=== PATIENT | male | born 1960 | race Caucasian/White ===

== ENCOUNTER 2024-08-26 10:09 | Emergency (ER) | payer OTHER ==
[~2024-08-26] VITALS: Ht 188 cm; Wt 97.3 kg
--- NOTE | 2024-08-26 10:51 | ED.PDOC ---
Musculoskeletal HPI Comments A 64 YEAR OLD MALE PRESENTS TO THE ED WITH COMPLAINT OF RIGHT KNEE PAIN AND SWELLING OF X1 MONTH AGO S/P LIFTING. PATIENT REPORTS NO ALLEVIATING FACTORS AT THIS TIME. PATIENT DENIES FEVER, CHILLS, SHORTNESS OF BREATH, CHEST PAIN, ABDOMINAL PAIN, NAUSEA, VOMITING, HEADACHE, OR OTHER COMPLAINTS. NO OTHER SYMPTOMS OR MODIFYING FACTORS AT THIS TIME. PATIENT IS ALERT, ORIENTED X 4, AND HAS STEADY GAIT. Chief Complaint: LOWER EXTREMITY Time Seen by MD: 10:19 Reviewed Notes: Medications, Allergies Allergies: Coded Allergies: NO KNOWN ALLERGIES (Unverified , 08/26/24) Home Meds Active Scripts Prednisone (Prednisone) 20 Mg Tab, 40 MG PO DAILY, #20 TAB Prov:DIONE WYLIE 08/26/24 Information Source: Patient Mode of Arrival: Ambulatory Location: Right Extremity Location: Knee (RIGHT ) Timing: Months (1) Prehospital treatment: None Severity: Moderate Able to Move Extremity: No Bear Weight: Limited Pain: Moderate Circumstances: Unknown (LIFTING) Onset of Symptoms: During Exercise Symptoms: Swelling, Pain DVT Risk Factors: NONE Last Tetanus: UTD Associated signs and symptoms: Knee pain (RIGHT ) Past Medical History PAST MEDICAL HISTORY: Denies Surgical History: Denies all surgeries Family History Family History: Reviewed,noncontributory to illness, No family hx of Cancer, No family hx of DM, No family hx of Heart spencer, No family hx of HTN, No family hx ofKidney spencer, No family hx of Liver spencer, No family hx of Lung spencer, No family hx of Stroke Social History Smoker: Non-Smoker Alcohol: Denies ETOH Use Drugs: Denies Drug Use Constitutional: denies: chills, diaphoresis, fatigue, fever, malaise, sweats, weakness, others EENTM: denies: blurred vision, double vision, ear bleeding, ear discharge, ear drainage, ear pain, ear ringing, eye pain, eye redness, hearing loss, mouth pain, mouth swelling, nasal discharge, nose bleeding, nose congestion, nose pain, photophobia, tearing, throat pain, throat swelling, voice changes, others Respiratory: denies: cough, hemoptysis, orthopnea, SOB at rest, shortness of breath, SOB with excertion, stridor, wheezing, others Cardiovascular: denies: chest pain, dizzy spells, diaphoresis, Dyspnea on exertion, edema, irregular heart beat, left arm pain, lightheadedness, palpitations, PND, syncope, others Gastrointestinal: denies: abdomen distended, abdominal pain, blood streaked bowels, constipated, diarrhea, dysphagia, difficulty swallowing, hematemesis, melena, nausea, poor appetite, poor fluid intake, rectal bleeding, rectal pain, vomiting, others Genitourinary: denies: burning, dysuria, flank pain, frequency, hematuria, incontinence, penile discharge, penile sore, pain, testicle pain, testicle swelling, urgency, others Neurological: denies: dizziness, fainting, headache, left sided numbness, left sided weakness, numbness, paresthesia, pre-existing deficit, right sided numbness, right sided weakness, seizure, speech problems, tingling, tremors, weakness, others Musculoskeletal: reports: joint pain, joint swelling, others (RIGHT KNEE PAIN ); denies: back pain, gout, muscle pain, muscle stiffness, neck pain Integumetry: denies: bruises, change in color, change in hair/nails, dryness, laceration, lesions, lumps, rash, wounds, others Allergic/Immunocompromised: denies: Difficulty Healing, Frequent Infections, Hives, Itching, others Hematologic/Lymphatic: denies: anemia, blood clots, easy bleeding, easy bruising, swollen glands, others Endocrine: denies: excessive hunger, excessive sweating, excessive thirst, excessive urination, flushing, intolerance to cold, intolerance to heat, unexplained weight gain, unexplained weight loss, others Psychiatric: denies: anxiety, bipolar disorder, depression, hopeless, panic disorder, schizophrenia, sleepless, suicidal, others All Other Systems: Reviewed and Negative Was a procedure done? Was a procedure done?: Yes Sedation Sedation?: No Incision and Drainage Incision and Drainage: Other Location RIGHT KNEE Anesthetic: Lidocaine Preparation: Saline, Wound floor cleaner Incision and Wound: Blood Informed consent obtained: Yes Risks/benefits/alt described: Yes Differential Diagnosis EXT Differential Diagnosis: Deep Vein Thrombosis, Laceration, Contusion, Strain X-Ray, Labs, Meds, VS Vital Signs Date Time Temp Pulse Resp B/P (MAP) Pulse Ox O2 Delivery O2 Flow Rate FiO2 08/26/24 12:19 68 18 97 Room Air 08/26/24 12:19 98.2 68 18 126/81 (96) 97 98.2 08/26/24 10:30 98.4 87 14 122/88 (99) 98 98.4 EXAM: XY R KNEE 2V XRAY HISTORY: PAIN AND SWELLING XONE MONTH COMPARISON: None TECHNIQUE: AP and lateral views of the right knee were performed. FINDINGS: No acute fracture is identified about the right knee. There are medial and patellofemoral small marginal osteophytes. No significant joint space narrowing. There is an osteochondral lesion of the lateral aspect of the medial femoral condyle. There is chondrocalcinosis of the medial and lateral menisci. There is evidence of extrusion of the calcified medial meniscus body on the AP film. Moderate to large joint effusion accumulates in the suprapatellar pouch. There is mild soft tissue prominence anterior to the patella and patellar tendon. IMPRESSION: 1. No acute fracture of the right knee. 2. Osteochondral lesion of the medial femoral condyle. 3. Mild degenerative changes of the medial and patellofemoral compartments. 4. Chondrocalcinosis of the medial and lateral menisci, and medial extrusion of the body of the medial meniscus. Recommend follow-up noncontrast MRI of the right knee on a nonemergent basis for better characterization. 5. Moderate to large joint effusion. X-Ray, Labs, Meds, VS Comment EXTERNAL MEDICAL RECORDS REVIEWED: [NONE] INDEPENDENT HISTORIANS: [NONE] SOCIAL DETERMINANTS OF HEALTH: [NONE] LABS ORDERED: NONE REVIEWED AND INTERPRETED RESULTS: NONE IMAGING ORDERED: RIGHT KNEE 2V XRAY TREATMENTS ORDERED: NONE PROCEDURES PERFORMED: NONE CRITICAL CARE TIME: NONE I HAVE DISCUSSED THE PATIENT WITH THE ATTENDING PHYSICIAN AND HE AGREES WITH THE PATIENT'S PLAN OF CARE AND DISPOSITION. BASED ON HISTORY OF PRESENT ILLNESS, AND PHYSICAL EXAM, PATIENT WILL BE DISCHARGED HOME. DISCUSSED PLAN FOR DISCHARGE HOME WITH RX [[facility]]. MEDICATION WARNINGS GIVEN. SHARED DECISION MAKING: DISCUSSED WITH PATIENT THAT THEIR WORKUP WAS NORMAL. PATIENT INSTRUCTED TO FOLLOW UP WITH PRIMARY CARE PROVIDER IN 1-2 DAYS FOR RE- EVALUATION OF SYMPTOMS. PATIENT VERBALIZES UNDERSTANDING TO RETURN TO ED FOR NEW OR WORSENING SYMPTOMS OR IF FOLLOW UP WITH PCP CANNOT BE OBTAINED. PATIENT FEELS COMFORTABLE GOING HOME AT THIS TIME. ALL QUESTIONS ADDRESSED AT TIME OF DISCHARGE. Time of 1ST Reevaluation: 12:55 Reevaluation 1ST: Unchanged Patient Education/Counseling: Diagnosis, Treatment, Need For Follow Up Family Education/Counseling: Diagnosis, Treatment, No Family Present Medical Screening: No EMC Exist At This Time Departure 1 Departure Time of Disposition: 13:15 Impression: Primary Impression: Chondrocalcinosis Additional Impression: Joint effusion of knee Qualified Codes: M25.461 - Effusion, right knee Disposition: 01 HOME / SELF CARE / HOMELESS Condition: Stable Additional Instructions: FOLLOW-UP WITH PCP IN 1 TO 2 DAYS. TAKE MEDICATIONS PRESCRIBED. RETURN TO ED FOR ANY NEW OR WORSENING SYMPTOMS. e-Prescriptions Prednisone (Prednisone) 20 Mg Tab 40 MG PO DAILY, #20 TAB Prov: DIONE WYLIE 08/26/24 Discharged With: Self Critical Care Note Critical Care Time?: No Stability Stability form required: No Heart Score Heart Score: Heart Score Response (Comments) Value History N/A 0 EKG N/A 0 Age N/A 0 Risk Factors N/A 0 Troponin N/A 0 Total 0 DIONE WYLIE Aug 26, 2024 10:51
--- NOTE | 2024-08-26 11:12 | DVH ---
EXAM: XY R KNEE 2V XRAY HISTORY: PAIN AND SWELLING XONE MONTH COMPARISON: None TECHNIQUE: AP and lateral views of the right knee were performed. FINDINGS: No acute fracture is identified about the right knee. There are medial and patellofemoral small aliza inal osteophytes. No significant joint space narrowing. There is an osteochondral lesion of the late ral aspect of the medial femoral condyle. There is chondrocalcinosis of the medial and lateral menisc i. There is evidence of extrusion of the calcified medial meniscus body on the AP film. Moderate to l arge joint effusion accumulates in the suprapatellar pouch. There is mild soft tissue prominence ante rior to the patella and patellar tendon. IMPRESSION: 1. No acute fracture of the right knee. 2. Osteochondral lesion of the medial femoral condyle. 3. Mild degenerative changes of the medial and patellofemoral compartments. 4. Chondrocalcinosis of the medial and lateral menisci, and medial extrusion of the body of the media l meniscus. Recommend follow-up noncontrast MRI of the right knee on a nonemergent basis for better characterization. 5. Moderate to large joint effusion.
[2024-08-26 12:19] VITALS: BP 126/81; PULSE 68; RESP 18; TEMP 98.2; O2SAT 97
[2024-08-26] MEDS: LIDOCAINE 1% HCL (LOCAL ANESTH.) INJ 20ML MDV IJ ONE (12:53)
[2024-08-26] MEDS ORDERED: PRED20TA2 PO (12:54)
== END 2024-08-26 13:01 | disposition home or self-care (01) ==
LOC: ER 10:09
DX: M11.261 Other chondrocalcinosis, right knee (principal); M25.461 Effusion, right knee
CPT/HCPCS: 10060; 73560; 99283; J2003